=== PATIENT | female | born 1960 | race Two or more races ===

== ENCOUNTER 2022-08-14 11:37 | Emergency (ER) | payer MEDICAID, SELFPAY ==
[2022-08-14 11:43] VITALS: BP 177/113; PULSE 106; RESP 24; TEMP 37; O2SAT 100; BMI 22.3
--- NOTE | 2022-08-14 11:49 | PC.NURSE ---
pt iwth swelling and deformity noted to left ankle and left above the ankle area pt with swelling noted tor t shoulder and left wrist as well ice bags applied
--- NOTE | 2022-08-14 12:03 | XR_ITS ---
[place] [id number] Patient Name: JOANNE FREDERICK MRN: [id number] date: 1960 Sex: F Assigned Patient Location: ER Current Patient Location: ER Accession/Order Number: [id number] Exam Date: 08/14/2022 13:05 Report Date: 08/14/2022 14:21 At the request of: PHILLIP RAMOS Procedure: XR shoulder RT min 2V RIGHT SHOULDER X-RAY THREE VIEWS HISTORY: Pain. COMPARISON: None. FINDINGS: There is no acute fracture or dislocation. There is a suggestion of an old right glenoid fracture. There is an old right lateral seventh rib fracture. There are mild degenerative changes right AC joint. There are no destructive bone lesions. IMPRESSION: No acute bony abnormality. Findings suggestive of an old right glenoid fracture. Mild osteoarthritis right AC joint. Electronically authenticated by: YANNI GARRIDO Date: 08/14/2022 14:21
--- NOTE | 2022-08-14 12:03 | ED.GENADUL1 ---
HPI - General Adult General Chief complaint: Extremity Injury, Lower Stated complaint: fall Time Seen by Provider: 08/14/22 11:49 Source: patient Mode of arrival: ambulance History of Present Illness HPI narrative: patient slipped on the floor of the quaker and fell, injuring the right shoulder, left wrist and left lower leg and ankle. No meds taken [employer]PER[employer] - she was brought in by EMS. Related Data Previous Rx's Medication Instructions Recorded oxycodone-acetaminophen 5 mg-325 1 tab PO Q6H PRN pain #20 tabs 08/14/22 mg tablet (Percocet) Allergies Allergy/AdvReac Type Severity Reaction Status Date / Time morphine Allergy Severe Verified 08/14/22 12:24 Penicillins Allergy Severe Verified 08/14/22 11:43 sulfamethoxazole Allergy Severe Verified 08/14/22 11:43 [From Bactrim] trimethoprim [From Bactrim] Allergy Severe Verified 08/14/22 11:43 steri strips Allergy Severe Uncoded 08/14/22 11:43 Exam Narrative Exam Narrative: Nurses note and vital signs reviewed and patient is not hypoxic. afebrile General: The patient appears well and in no apparent distress. Patient is resting comfortably on cart. GCS = 15. Skin: Warm, dry, no pallor noted. Head: Normocephalic, atraumatic Neck: Supple, trachea mid-line. Full ROM and no cervical spinal tenderness. Eyes: PERRLA, EOMI ENT: TMs clear, no hemotympanum detected, no blood in posterior oropharynx Cardiovascular: Regular Rate and Rhythm Respiratory: Patient is in no distress, no accessory muscle use, lungs are clear to auscultation, no wheezing, rales or rhonchi Chest Wall: no tenderness, no flail chest, contusion, abrasion, or signs of trauma. Back: No thoracic or lumbar tenderness to palpation. Negative straight leg raise bilaterally. Musculoskeletal: Tenderness throughout the right shoulder - she has ROM but it is painful with both active and passive ROM. The left wrist is also tender with limited movement secondary to the pain. The left lower leg is tender with swelling at the proximal left fibula. She also has tenderness and swelling to the distal left tibia. The ankle is non-tender but she has distal left lower leg pain with left ankle movement. Left foot appears unaffected. Pulses at femoral, DP, PT, and popliteal were 2+ bilaterally. GI: Normal bowel sounds, no tenderness to palpation, no masses appreciated. No rebound, guarding, or rigidity noted. 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 Psychiatric: Cooperative Constitutional Vital Signs - 24 hr 08/14/22 11:43 Temperature 98.6 F Pulse Rate [Monitor] 106 H Respiratory Rate 24 Blood Pressure [Left Arm] 177/113 H Pulse Oximetry 100 Oxygen Delivery Method Room Air Course Vital Signs Vital signs: Vital Signs Temperature 98.6 F 08/14/22 11:43 Pulse Rate 106 H 08/14/22 11:43 Respiratory Rate 24 08/14/22 11:43 Blood Pressure 177/113 H 08/14/22 11:43 Pulse Oximetry 100 08/14/22 11:43 Oxygen Delivery Method Room Air 08/14/22 11:43 Temperature 98.6 F 08/14/22 11:43 Pulse Rate 106 H 08/14/22 11:43 Respiratory Rate 24 08/14/22 11:43 Blood Pressure 177/113 H 08/14/22 11:43 Pulse Oximetry 100 08/14/22 11:43 Oxygen Delivery Method Room Air 08/14/22 11:43 Medical Decision Making MDM Narrative Medical decision making narrative: x-rays were obtained of the patient's right shoulder, left wrist as well as left tibia and fibula plus left ankle. No fractures were identified of the patient's right shoulder or left wrist. Left ankle also is without fracture. However the patient had spiral fracture of the distal tibia and displaced fracture of the proximal fibula. I spoke with the orthopedic surgeon on-call through [facility] orthopedics, Dr. Lopez. After discussing the patient's fracture and informed her that the patient's family requests that the patient be discharged back to [place], was agreed that I would apply a posterior splint that ran from the foot all the way up to the distal left thigh with a stirrup splint for support and also ran from the heel to the distal left thigh. The patient had been given IV Dilaudid emergency department was discharged home with prescriptions for Percocet. He was made clear to the family that the patient should keep that leg elevated and take the pain medicines as prescribed. If she was having difficulty ambulating at home without any weightbearing on that leg, she had increased pain in the left lower extremity or any discoloration of the toes of the left foot that she would need to be seen emergently at [facility] emergency department. They decided to travel back to [place] because she had previously seen orthopedic surgery at [facility] in [place] and wanted to be seen there with that orthopedic group. Imaging Data xr shoulder: Attestation: I have reviewed the pertinent imaging results. Radiologist's impression: Patient: JOANNE FREDERICK MR#: [id number] : 1960 Acct:[id number] Age/Sex: 62 / F ADM Date: 08/14/22 Loc: ER Attending Dr: Ordering Physician: Phillip Ramos D.O. Date of Service: 08/14/22 Procedure(s): XR shoulder RT min 2V Accession Number(s): [id number] cc: ~ ? [facility] ?? ? [address] [place] [address] ?? ? [place] [address] ? Patient Name: DAYANA FREDERICK ? MRN: [id number]? ? date: 1960? ? Sex: F Assigned Patient Location: ER Current Patient Location: ER Accession/Order Number: [id number] Exam Date: 08/14/2022? 13:05? ? Report Date: 08/14/2022? 14:11 ? At the request of: PHILLIP? RACHEL? ? Procedure:? XR shoulder RT min 2V ? RIGHT SHOULDER X-RAY THREE VIEWS ? HISTORY: Pain. ? COMPARISON: None. ? FINDINGS: There is no acute fracture or dislocation. There is a suggestion of an old right glenoid fracture. There is an old right lateral seventh rib fracture. There are mild degenerative changes right AC joint. There are no destructive bone lesions. ? IMPRESSION: ? No acute bony abnormality. ? Findings suggestive of an old right glenoid fracture. ? Mild osteoarthritis right AC joint. ? ? ? Electronically authenticated by: MONO GARRIDO ? Date: 08/14/2022? 14:11 ? xr wrist: Attestation: I have reviewed the pertinent imaging results. Radiologist's impression: MRN: [id number] date: 1960 Sex: F Assigned Patient Location: ER Current Patient Location: ER Accession/Order Number: [id number] Exam Date: 08/14/2022 13:05 Report Date: 08/14/2022 14:11 At the request of: PHILLIP RAMOS Procedure: XR wrist LT min 3V LEFT WRIST 3 VIEWS: 08/14/2022 1:05 PM EDT Clinical Data: left wrist injury and pain, fall Comparison: No previous No evidence of acute fracture or dislocation. Fair amount of degenerative irregularity in the region of the base of the first metacarpal. Potential prior surgery in this region. IMPRESSION: 1. No evidence of acute fracture or dislocation. Electronically authenticated by: RANJIT RODRIGUEZ Date: 08/14/2022 14:11 xr ankle: Attestation: I have reviewed the pertinent imaging results. Radiologist's impression: Patient Name: JOANNE FREDERICK MRN: [id number] date: 1960 Sex: F Assigned Patient Location: ER Current Patient Location: ER Accession/Order Number: [id number] Exam Date: 08/14/2022 13:05 Report Date: 08/14/2022 14:09 At the request of: PHILLIP RAMOS Procedure: XR ankle LT 2V EXAM: XR ankle LT 2V, XR tibia fibula LT 2V HISTORY: left ankle injury and pain, fall COMPARISON: None. TECHNIQUE: 2 view left ankle. 2 view left tibia and fibula. FINDINGS: Acute comminuted oblique and mildly displaced left proximal fibular shaft fracture. Overlying edema. Acute spiral fracture of the left distal tibial shaft with displacement and overlying edema. The ankle and knee joints appear grossly intact. 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 Mild degenerative change left knee medial compartment with chondrocalcinosis. IMPRESSION: Acute mildly displaced spiral fractures of the left proximal fibula and distal tibia, extra-articular. Electronically authenticated by: LORI PRESTON Date: 08/14/2022 14:09 xr tib fib: Attestation: I have reviewed the pertinent imaging results. Radiologist's impression: Patient Name: JOANNE FREDERICK MRN: [id number] date: 1960 Sex: F Assigned Patient Location: ER Current Patient Location: ER Accession/Order Number: [id number] Exam Date: 08/14/2022 13:05 Report Date: 08/14/2022 14:09 At the request of: PHILLIP RAMOS Procedure: XR tibia fibula LT 2V EXAM: XR ankle LT 2V, XR tibia fibula LT 2V HISTORY: left ankle injury and pain, fall COMPARISON: None. TECHNIQUE: 2 view left ankle. 2 view left tibia and fibula. FINDINGS: Acute comminuted oblique and mildly displaced left proximal fibular shaft fracture. Overlying edema. Acute spiral fracture of the left distal tibial shaft with displacement and overlying edema. The ankle and knee joints appear grossly intact. 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 Mild degenerative change left knee medial compartment with chondrocalcinosis. IMPRESSION: Acute mildly displaced spiral fractures of the left proximal fibula and distal tibia, extra-articular. Electronically authenticated by: LORI PRESTON Date: 08/14/2022 14:09 Discharge Plan Discharge Chief Complaint: Extremity Injury, Lower Clinical Impression: Fracture of left tibia and fibula, Closed left tibial fracture, Closed fracture of left fibula, Sprain of right shoulder, Left wrist sprain Patient Disposition: Home, Self-Care Time of Disposition Decision: 15:55 Prescriptions / Home Meds: New oxycodone-acetaminophen [Percocet] 5-325 mg tablet 1 tab PO Q6H PRN (Reason: pain) Qty: 20 0RF Instructions: Leg Fracture (ED), Shoulder Sprain (ED), Wrist Sprain (ED) Stand Alone Forms: Portal Instructions Referrals: Physician,Non-Staff, MD [Primary Care Provider] - 1 week Procedures ED Ortho Splinting/Casting Orthopedic Splinting/Casting Injury #1: Additional comments: with the assistance of the emergency Department nurse, I applied a posterior OCL splint to the patient's left lower extremity extending from the toes maximally to the distal left thigh area to I also applied a stirrup splint to offer medial and lateral support that extended from the heel to the patient's distal left thigh. It was wrapped in Capo wrap and the patient tolerated well. She was neurovascularly intact distally afterward.
[2022-08-14] MEDS: HYDROMORPHONE HCL 0.5 MG/0.5 ML SYRINGE IV (12:23)
[2022-08-14] MEDS: ONDANSETRON PF 4 MG/2 ML VIAL IV (12:23)
--- NOTE | 2022-08-14 14:54 | PC.NURSE ---
sling applied to rt arm mouth swab given to patient at this time
--- NOTE | 2022-08-14 15:04 | PC.NURSE ---
this nurse in to talk w patient and familly about poc and pt states that she does not want to stay around here for ortho care but wants to go back to [place] for ortho care
--- NOTE | 2022-08-14 15:21 | PC.NURSE ---
splint applied to left wirst
== END 2022-08-14 16:30 | disposition home or self-care (01) ==
PROVIDERS: Emergency Provider Emergency Medicine
DX: S82.832A Other fracture of upper and lower end of left fibula, initial encounter for closed fracture (principal); S82.302A Unspecified fracture of lower end of left tibia, initial encounter for closed fracture; S43.402A Unspecified sprain of left shoulder joint, initial encounter; S63.502A Unspecified sprain of left wrist, initial encounter; W01.10XA Fall on same level from slipping, tripping and stumbling with subsequent striking against unspecified object, initial encounter
CPT/HCPCS: 29505; 73030; 73110; 73590; 73600; 96374; 96375; 99285; J1170